=== PATIENT | male | born 1995 | race Two or more races ===

== ENCOUNTER 2020-12-09 20:20 | Emergency (ER) | payer OTHER ==
[~2020-12-09] VITALS: Ht 170.2 cm; Wt 77.1 kg
[2020-12-09] MEDS ORDERED: BUPRENORPHINE HC8 MG SL (20:46)
[2020-12-09] MEDS ORDERED: CYCL10 PO (21:48)
== END 2020-12-09 21:56 | disposition home or self-care (01) ==
LOC: ER 20:20
DX: S39.012A Strain of muscle, fascia and tendon of lower back, initial encounter (principal); F17.200 Nicotine dependence, unspecified, uncomplicated; X50.0XXA Overexertion from strenuous movement or load, initial encounter
CPT/HCPCS: 96372; 99283-25; A9270; J1885